=== PATIENT | male | born 1945 | race Caucasian/White ===

== ENCOUNTER 2021-04-23 18:04 | Inpatient (IN) ==
[2021-04-23] MEDS ORDERED: Lactated Ringers 1000 ml BAG 1,000 ML IV ONE ×2 (18:56→21:37)
[2021-04-23 19:41] LABS: Activated Partial Thrombo Time 20.9 seconds (26.0-38.0); INR 1.19 (0.86-1.15)
[2021-04-23 19:44] LABS: ALT 17 U/L (7-52); AST 23 U/L (13-39); Albumin 3.7 g/dL (3.2-5.2); Albumin/Globulin Ratio 1.2 (1-3); Alkaline Phosphatase 60 U/L (35-149); Anion Gap 8 mmol/L (2-11); Blood Urea Nitrogen 30 mg/dL (6-24); C Reactive Protein 274.97 mg/L (<8.01); CO2 Carbon Dioxide 26 mmol/L (22-32); Calcium 8.8 mg/dL (8.6-10.3); Chloride 97 mmol/L (101-111); EGFR Non-African American 60.3 (>60); Globulin 3.1 g/dL (2-4); Glucose 106 mg/dL (70-100); Potassium 3.8 mmol/L (3.5-5.0); Sodium 131 mmol/L (135-145); Total Protein 6.8 g/dL (6.4-8.9)
[2021-04-23 19:54] LABS: ABS Lymphocytes 0.5 10^3/ul (1.0-4.8); ABS Monocytes 0.8 10^3/ul (0-0.8); ABS Neutrophils 5.5 10^3/ul (1.5-7.7); Hematocrit 43 % (42-52); Hemoglobin 14.4 g/dL (14.0-18.0); Lymphocyte % 7.7 %; Mean Corpuscular HGB Conc 33 g/dL (31-36); Mean Corpuscular Hemoglobin 28 pg (27-31); Mean Corpuscular Volume 83 fL (80-94); Mean Platelet Volume 10.2 fL (7.4-10.4); Nucleated Red Blood Cells % 0.1; Platelet Count 121 10^3/uL (150-450); Red Cell Distribution Width 14 % (10-15); White Blood Count 6.9 10^3/uL (3.5-10.8)
[2021-04-23] MEDS ORDERED: cefTRIAXone 1 gm/50 mL NS BAG 1 GM/50 ML BAG IV ONE (19:55)
[2021-04-23] MEDS ORDERED: Azithromycin 500 mg/250 ml NS 500 MG/250 ML BAG IVPB ONE (19:55)
[2021-04-23 20:01] LABS: Troponin I 0.03 ng/mL (<0.03)
[2021-04-23 20:58] LABS: Rapid COVID-19 Molecular Undetected (Undetected)
[2021-04-23 21:26] LABS: Urine Appearance Cloudy; Urine Bilirubin Negative (Negative); Urine Blood 2+ (Negative); Urine Color Amber; Urine Glucose Negative (Negative); Urine Ketones Trace (Negative); Urine Nitrite Negative (Negative); Urine Protein 2+(100 mg/dL) (Negative); Urine Specific Gravity 1.031 (1.002-1.030); Urine Urobilinogen Positive (Negative)
[2021-04-23 21:44] LABS: Urine Bacteria Absent (Absent); Urine Granular Casts Present (Absent); Urine Red Blood Cell 3+(>10/hpf) (Absent); Urine Squamous Epithelial Cell Present (Absent); Urine White Blood Cell 1+(6-10/hpf) (Absent)
[2021-04-23 23:02] LABS: Troponin I 0.03 ng/mL (<0.03)
[2021-04-24 01:39] LABS: Anion Gap 7 mmol/L (2-11); Blood Urea Nitrogen 27 mg/dL (6-24); C Reactive Protein 253.26 mg/L (<8.01); CO2 Carbon Dioxide 27 mmol/L (22-32); Calcium 8.5 mg/dL (8.6-10.3); Chloride 98 mmol/L (101-111); EGFR African American 81.7 (>60); EGFR Non-African American 67.6 (>60); Glucose 93 mg/dL (70-100); Potassium 3.7 mmol/L (3.5-5.0); Sodium 132 mmol/L (135-145)
[2021-04-24 01:47] LABS: ABS Lymphocytes 0.7 10^3/ul (1.0-4.8); ABS Monocytes 0.6 10^3/ul (0-0.8); ABS Neutrophils 4.2 10^3/ul (1.5-7.7); Eosinophil % 0.1 %; Hematocrit 39 % (42-52); Hemoglobin 13.1 g/dL (14.0-18.0); Lymphocyte % 12.2 %; Mean Corpuscular HGB Conc 34 g/dL (31-36); Mean Corpuscular Hemoglobin 28 pg (27-31); Mean Corpuscular Volume 82 fL (80-94); Mean Platelet Volume 9.9 fL (7.4-10.4); Platelet Count 99 10^3/uL (150-450); Red Blood Count 4.73 10^6 /uL (4.18-5.48); Red Cell Distribution Width 14 % (10-15); White Blood Count 5.6 10^3/uL (3.5-10.8)
[2021-04-24] MEDS: Enoxaparin 40 MG/0.4 ML SYR SUBCUT SCH ×2 (01:49→22:01)
[2021-04-24 01:55] LABS: Troponin I 0.03 ng/mL (<0.03)
[2021-04-24] MEDS: Cholecalciferol (VIT D3) 1,000 unit TAB PO SCH (07:33)
[2021-04-24] MEDS ORDERED: cefTRIAXone 1 gm/50 mL NS BAG 1 GM/50 ML BAG IVPB SCH (20:00)
[2021-04-24] MEDS ORDERED: Azithromycin 500 mg/250 ml NS 500 MG/250 ML BAG IVPB SCH (20:30)
[2021-04-25 07:30] LABS: ABS Lymphocytes 0.6 10^3/ul (1.0-4.8); ABS Monocytes 0.6 10^3/ul (0-0.8); Eosinophil % 0.6 %; Hematocrit 36 % (42-52); Hemoglobin 12.1 g/dL (14.0-18.0); Mean Corpuscular HGB Conc 34 g/dL (31-36); Mean Corpuscular Hemoglobin 28 pg (27-31); Mean Corpuscular Volume 82 fL (80-94); Mean Platelet Volume 9.9 fL (7.4-10.4); Platelet Count 97 10^3/uL (150-450); Red Blood Count 4.41 10^6 /uL (4.18-5.48); Red Cell Distribution Width 14 % (10-15); White Blood Count 4.2 10^3/uL (3.5-10.8)
[2021-04-25 07:34] LABS: Calcium 8.4 mg/dL (8.6-10.3); EGFR African American 99.8 (>60); EGFR Non-African American 82.5 (>60); Potassium 3.9 mmol/L (3.5-5.0)
[2021-04-25] MEDS: Cholecalciferol (VIT D3) 1,000 unit TAB PO SCH (09:11)
[2021-04-25 17:06] LABS: RBC Parasite Smear No Parasites Seen (No Parasite)
[2021-04-25] MEDS: Levofloxacin 750 MG IVPREMIX 750 MG/150 ML BAG IVPB SCH (20:49)
[2021-04-25] MEDS: Enoxaparin 40 MG/0.4 ML SYR SUBCUT SCH (23:35)
[2021-04-26 05:39] LABS: ABS Lymphocytes 0.6 10^3/ul (1.0-4.8); ABS Monocytes 0.6 10^3/ul (0-0.8); ABS Neutrophils 2.7 10^3/ul (1.5-7.7); Eosinophil % 0.8 %; Hematocrit 35 % (42-52); Hemoglobin 11.7 g/dL (14.0-18.0); Mean Corpuscular HGB Conc 34 g/dL (31-36); Mean Corpuscular Hemoglobin 27 pg (27-31); Mean Corpuscular Volume 81 fL (80-94); Mean Platelet Volume 9.5 fL (7.4-10.4); Platelet Count 105 10^3/uL (150-450); Red Blood Count 4.29 10^6 /uL (4.18-5.48); Red Cell Distribution Width 14 % (10-15)
[2021-04-26 05:58] LABS: Albumin 3.1 g/dL (3.2-5.2); Albumin/Globulin Ratio 1.1 (1-3); Calcium 8.3 mg/dL (8.6-10.3); EGFR African American 111.1 (>60); EGFR Non-African American 91.8 (>60); Globulin 2.8 g/dL (2-4); Magnesium 1.7 mg/dL (1.9-2.7); Potassium 3.6 mmol/L (3.5-5.0); Total Bilirubin 0.5 mg/dL (0.2-1.0); Total Protein 5.9 g/dL (6.4-8.9)
[2021-04-26] MEDS: Cholecalciferol (VIT D3) 1,000 unit TAB PO SCH (08:30)
[2021-04-26] MEDS: Benzocaine/Menthol LOZ PO PRN ×2 (10:57→17:54)
[2021-04-26] MEDS: Levofloxacin 750 MG IVPREMIX 750 MG/150 ML BAG IVPB SCH (16:40)
[2021-04-27] MEDS: Enoxaparin 40 MG/0.4 ML SYR SUBCUT SCH (03:05)
[2021-04-27 06:14] LABS: Hematocrit 35 % (42-52); Hemoglobin 11.9 g/dL (14.0-18.0); Mean Corpuscular HGB Conc 34 g/dL (31-36); Mean Corpuscular Hemoglobin 28 pg (27-31); Mean Corpuscular Volume 81 fL (80-94); Mean Platelet Volume 9.7 fL (7.4-10.4); Platelet Count 126 10^3/uL (150-450); Red Cell Distribution Width 14 % (10-15)
[2021-04-27 06:32] LABS: Calcium 8.7 mg/dL (8.6-10.3); EGFR African American 108.1 (>60); EGFR Non-African American 89.3 (>60); Potassium 3.6 mmol/L (3.5-5.0)
[2021-04-27] MEDS: Cholecalciferol (VIT D3) 1,000 unit TAB PO SCH (08:58)
[2021-04-27] MEDS ORDERED: Magnesium Hydroxide LIQ 30 ML UDC PO PRN (09:37)
[2021-04-27] MEDS ORDERED: Senna TAB 8.6 mg TAB PO PRN (09:37)
[2021-04-27] MEDS ORDERED: Polyethylene Glycol 3350 17 GM PACKET PO PRN (09:37)
[2021-04-27] MEDS: Magnesium Hydroxide LIQ 30 ML UDC PO SCH ×2 (10:28→10:29)
[2021-04-27 12:27] VITALS: BP 121/58
[2021-04-27] MEDS: Benzocaine/Menthol LOZ PO PRN (12:34)
[2021-04-29 18:02] LABS: Anaplasma phagocytophilum Negative (Negative); B. miyamotoi PCR, B Negative (Negative); Babesia divergens/MO-1 Negative (Negative); Babesia ducani Negative (Negative); Ehrlichia chaffeensis Negative (Negative); Ehrlichia ewingii/canis Negative (Negative); Ehrlichia muris eauclairensis Negative (Negative)
== END 2021-04-27 14:05 | disposition home or self-care (01) | DRG 179 ==
LOC: ED 18:04 → MED 18:04 → SUATTDRO 22:09 → MED 04-24 00:36 → SUATTDRO 04-25 11:00 → MED 04-26 02:43
PROVIDERS: ADMIT Hospitalist; ATTEND Internal Medicine